=== PATIENT | male | born 1970 | race Caucasian/White ===

== ENCOUNTER 2022-05-18 11:38 | Outpatient (CLI) | payer OTHER, SELFPAY ==
[2022-05-18 17:51] LABS: Chloride* 110 mmol/L (96-114); Potassium* 4.5 mmol/L (3.6-5.1); Sodium* 141 mmol/L (135-149)
[2022-05-18 17:54] LABS: Blood Urea Nitrogen* 19 mg/dL (7-30); Carbon Dioxide* 21 mmol/L (20-32); Cholesterol* 150 mg/dL (90-199); Creatinine* 0.7 mg/dL (0.5-1.5); Estimated Glomerular Filt Rate 112 ml/min; Glucose* 97 mg/dL (60-115); Triglycerides* 132 mg/dL (40-149)
[2022-05-18 17:55] LABS: Calcium* 9.1 mg/dL (8.4-10.6); HDL Cholesterol* 44 mg/dL (>=40); LDL Cholesterol Calculated 80 mg/dL (<100)
== END 2022-05-18 11:39 | disposition home or self-care (01) ==
PROVIDERS: PCP Family Medicine; Visit Provider Family Medicine
DX: E13.9 Other specified diabetes mellitus without complications (principal); E78.5 Hyperlipidemia, unspecified; I10 Essential (primary) hypertension
CPT/HCPCS: 80048; 80061

== ENCOUNTER 2023-08-29 09:30 | Outpatient (CLI) | payer OTHER, SELFPAY | END 2023-08-29 09:31 | disposition home or self-care (01) | LOC: NFLDREF 08-30 07:03 | PROVIDERS: PCP Family Medicine; Referring Provider Family Medicine; Visit Provider Family Medicine | DX: I10 Essential (primary) hypertension (principal); E13.9 Other specified diabetes mellitus without complications; E78.00 Pure hypercholesterolemia, unspecified; Z12.5 Encounter for screening for malignant neoplasm of prostate | CPT/HCPCS: 80048; 80061; G0103 ==

== ENCOUNTER 2023-11-28 11:58 | Emergency (ER) | payer OTHER, SELFPAY ==
[2023-11-28 12:04] VITALS: BP 184/93; PULSE 87; RESP 18; TEMP 35.8; O2SAT 99; BMI 43.8
[2023-11-28] MEDS: LACTATED RINGERS 1000 ML 1,000 ML IV (12:46)
[2023-11-28 12:59] LABS: Basophils Absolute Auto 0.03 K/uL (0.00-0.30); Basophils Percent Auto 0.5 % (0.0-3.0); Eosinophils Absolute Auto 0.08 K/uL (0.00-0.50); Eosinophils Percent Auto 1.5 % (0.0-7.0); Hematocrit 41.5 % (37.0-53.0); Hemoglobin* 13.7 gm/dL (13.5-17.5); Lymphocytes Absolute Auto 2.24 K/uL (0.90-2.90); Mean Corpuscular HGB Conc 33 gm/dL (32-36); Mean Corpuscular Hemoglobin 26 pg (26-34); Mean Corpuscular Volume 77 fL (80-100); Monocytes Percent Auto 7.3 % (0.0-11.0); Neutrophils Absolute Auto 2.72 K/uL (1.7-7.0); Neutrophils Percent Auto 49.7 % (42.0-72.0); Platelet Count* 145 K/uL (140-440); RDW Coefficient of Variation % 13.1 % (11.5-15.5); Red Blood Count 5.38 m/uL (4.30-5.90); White Blood Count* 5.47 K/uL (4.50-11.00)
--- NOTE | 2023-11-28 13:01 | ED_ITS ---
HPI - General Adult General Date Seen: 11/28/23 Chief complaint: Arrhythmia/Palpitations Stated complaint: Shortness of breath, heart beating hard Time Seen by Provider: 11/28/23 12:01 Source: patient Mode of arrival: ambulatory Limitations: no limitations History of Present Illness HPI narrative: Patient is a 53-year-old male history of hypertension, diabetes presenting to emergency department for episodes of shortness of breath and palpitations. He states yesterday he felt some palpitations yesterday but was able to exercise without any further issues. He was asymptomatic during this exercise. Today he had 2 separate episodes where he was walking up the steps at [facility] he developed diaphoresis, palpitations and shortness of breath. After the 2nd episode he came to be evaluated. Denies symptoms like this before. No history of cardiac issues. Denies fevers, chills, headache, vision changes, weakness, numbness. Currently denies chest pain or shortness of breath. States he never had chest pain throughout these episodes. States symptoms improved when he sits or lays down. Related Data Home Medications ?Medication ?Instructions ?Recorded ?Confirmed aspirin 81 mg tablet,delayed 81 mg PO QDAY 05/18/22 02/05/23 release (Adult Aspirin Regimen) clobetasol 0.05 % topical ointment 1 topical BID 05/18/22 02/05/23 multivitamin 1 tab PO QDAY 05/18/22 02/05/23 urea 20 % topical cream 20 applic topical DAILY 05/18/22 02/05/23 Previous Rx's ?Medication ?Instructions ?Recorded celecoxib 200 mg capsule (Celebrex) 200 mg PO QDAY #30 caps 05/18/22 lisinopril 20 mg tablet 20 mg PO DAILY #90 tabs 05/18/22 atorvastatin 20 mg tablet 20 mg PO .Bedtime #90 tabs 02/05/23 glipizide 10 mg tablet, extended 10 mg PO QDAY #90 tabs 02/05/23 release 24 hr metformin 500 mg tablet 1,000 mg (2 x 500 mg) PO BID #360 09/02/23 tabs Allergies Allergy/AdvReac Type Severity Reaction Status Date / Time codeine Allergy Mild Headache Verified 11/28/23 15:22 Review of Systems Status of ROS: Reports: 10 or more systems reviewed and unremarkable except as noted in History and below PFSH PFS Surgical History Status post amputation of finger ?Z89.029 - Acquired absence of unspecified finger(s) (ICD-10) History of left inguinal hernia repair (09/30/09) ?Z98.890 - Other specified postprocedural states (ICD-10) ?Z87.19 - Personal history of other diseases of the digestive system (ICD-10) Family History Other Diabetes Social History What is your current living situation?: declined to answer Problems where you live: declined to answer In the past 12 months, utilities in danger of being shut off: declined to answer In past 12 months, lack of transportation kept you from medical appts, meetings, work, or getting things needed for daily living: declined to answer In the past 12 mos, have been you worried that your food would run out before you had money to buy more?: declined to answer In the past 12 mos, the food you bought just didn't last and you didn't have money to buy more?: declined to answer Smoking Status: Never smoker How often do you have a drink containing alcohol: never AUDIT-C Alcohol total score: 0 Non-prescribed substance use: denies use How often does anyone, including family, friends and others, physically hurt you : never How often does anyone, including family, friends and others, insult or talk down to you: never How often does anyone, including family, friends and others, threaten you with harm: never How often does anyone, including family, friends and others, scream or curse at you: never Exam Narrative: Exam Narrative: Const: Well-nourished, Well-developed, in no distress Eyes: PERRL, no conjunctival injection, and symmetrical lids HENT: Atraumatic external nose and ears. Moist mucous membranes. Neck: Symmetric, trachea midline, No thyromegaly. CVS: RRR, No murmurs or gallops. Peripheral pulses 2+ and equal in all extremities RESP: Unlabored respiratory effort. Clear to auscultation bilaterally. GI: Nontender/Nondistended, No rebound or guarding. MSK:Extremities w/o deformity, Normal Active ROM Skin: Warm, Dry. No rashes or lesions. Neuro: Normal Muscle tone, No focal neurological deficits. Psych: Awake, Alert, & Oriented x3. Appropriate mood and affect. Const: Vital Signs, click to edit/add: Vital Signs - 24 hr 11/28/23 12:04 11/28/23 13:39 Temperature 96.4 F L Pulse Rate [Pulse Oximeter] 87 72 Respiratory Rate 18 18 Blood Pressure [Le ft Upper Arm] 184/93 H 159/90 H Pulse Oximetry 99 97 Oxygen Delivery Me thod Room Air Room Air Course Vital Signs Vital signs: Initial Vital Signs Temperature 96.4 F L 11/28/23 12:04 Temperature Source Temporal Artery Scan 11/28/23 12:04 Pulse Rate 87 11/28/23 12:04 Pulse Rhythm Regular 11/28/23 12:04 Respiratory Rate 18 11/28/23 12:04 Blood Pressure 184/93 H 11/28/23 12:04 Blood Pressure Mean 123 H 11/28/23 12:04 Blood Pressure Position Supine 11/28/23 12:04 Pulse Oximetry 99 11/28/23 12:04 Oxygen Delivery Method Room Air 11/28/23 12:04 Vital Signs Temperature 96.4 F L 11/28/23 12:04 Pulse Rate 87 11/28/23 12:04 Respiratory Rate 18 11/28/23 12:04 Blood Pressure 184/93 H 11/28/23 12:04 Pulse Oximetry 99 11/28/23 12:04 Oxygen Delivery Method Room Air 11/28/23 12:04 Temperature 96.4 F L 11/28/23 12:04 Pulse Rate 72 11/28/23 13:39 Respiratory Rate 18 11/28/23 13:39 Blood Pressure 159/90 H 11/28/23 13:39 Pulse Oximetry 97 11/28/23 13:39 Oxygen Delivery Method Room Air 11/28/23 13:39 Medications Administered Medications: Discontinued Medications Generic Name Dose Route Start Last Admin Trade Name Freq PRN Reason Stop Dose Admin Lactated Ringer's 1,000 mls @ 1,000 mls/hr 11/28/23 12:32 11/28/23 13:30 Lactated Ringers 1000 Ml IV 11/28/23 13:31 Infused .Q1H ONE Infusion Medical Decision Making MDM Narrative Medical decision making narrative: Patient is a 53-year-old male presenting to the emergency department for shortness of breath and palpitations. Currently asymptomatic. He does state he has also been having a cough. Is concerned about pneumonia. No history of blood clots. With the shortness of breath though I will order D-dimer look for signs of a PE. Will also order CBC, CMP, COVID/flu/RSV, EKG, troponin, magnesium. L of fluids was given. He states he feels like he has been well hydrated recently. Cbc, CMP shows no concerning abnormalities. COVID/flu/RSV is negative. Initial troponin within normal limits. EKG shows no concerning findings. D-dimer is elevated 0.66. Will order a CTA for evaluation of PE other cardiothoracic issues. CT results returned showing no concerning abnormalities as reviewed by myself and the radiologist. Patient continues she has stable vital signs. Repeat troponin is ordered and was normal. He is doing well at this time will be discharged. Lab Data Labs: Lab Results 11/28/23 Range/Units 12:45 WBC 5.47 (4.50-11.00) K/uL RBC 5.38 (4.30-5.90) m/uL Hgb 13.7 (13.5-17.5) gm/dL Hct 41.5 (37.0-53.0) % MCV 77 L (80-100) fL MCH 26 (26-34) pg MCHC 33 (32-36) gm/dL RDW Coeff of Kimani 13.1 (11.5-15.5) % Plt Count 145 (140-440) K/uL Neut % (Auto) 49.7 (42.0-72.0) % Lymph % (Auto) 41.0 (20-44) % Burnet % (Auto) 7.3 (0.0-11.0) % Eos % (Auto) 1.5 (0.0-7.0) % Baso % (Auto) 0.5 (0.0-3.0) % Neut # (Auto) 2.72 (1.7-7.0) K/uL Lymph # (Auto) 2.24 (0.90-2.90) K/uL Burnet # (Auto) 0.40 (0.00-0.90) K/UL Eos # (Auto) 0.08 (0.00-0.50) K/uL Baso # (Auto) 0.03 (0.00-0.30) K/uL Abs Immat Gran (auto) 0.00 (0.00-0.30) K/uL Imm/Tot Granulo (auto) 0.0 % D-Dimer Quant (PE/DVT) 0.66 H (0.00-0.50) ug/ml Sodium 139 (135-149) mmol/L Potassium 4.0 (3.6-5.1) mmol/L Chloride 105 (96-114) mmol/L Carbon Dioxide 25 (20-32) mmol/L Anion Gap 9 (7-15) mEq/L BUN 16 (7-30) mg/dL Creatinine 0.8 (0.5-1.5) mg/dL Estimated Creat Clear 111.53 Estimated GFR 106 ml/min Glucose 139 H (60-115) mg/dL Calcium 9.3 (8.4-10.6) mg/dL Magnesium 1.7 (1.5-2.6) mg/dL Total Bilirubin 0.7 (0.1-1.5) mg/dL AST 34 (12-35) U/L ALT 50 (4-50) U/L Alkaline Phosphatase 79 (40-150) U/L Total Protein 7.4 (6.0-8.3) g/dL Albumin 4.4 (3.3-5.0) g/dL SARS-CoV-2 (PCR) Negative SARS-CoV-2 (Negative) Influenza Type A (PCR) Negative PCR FLU A (Negative) Influenza Type B (PCR) Negative PCR FLU B (Negative) RSV (PCR) Negative PCR RSV (Negative) POC Troponin I 0.00 L (0.01-0.04) ng/ml Imaging Data CTA chest: Radiologist's impression: No CT evidence of an acute process involving the thorax; specifically, no appreciable pulmonary embolism. Please note that all CT scans at this facility use dose modulation, iterative reconstruction, and/or weight-based dosing when appropriate to reduce radiation dose to as low as reasonably achievable. Dictated by Phuc Briones MD @ 11/28/2023 2:39:46 PM ECG Data Attestation: I personally reviewed and interpreted this ECG as follows: Prior ECG tracings: not available for review Interpretation: Normal sinus rhythm with a rate of 80 beats per minute, normal intervals, normal axis, no ST or T-wave abnormalities Discharge Plan Discharge Clinical Impression: Palpitations Patient Disposition: Home, Self-Care Condition: Stable Instructions: Heart Palpitations (DC) Additional Instructions: If symptoms persist I recommend following up with your primary care provider for a heart monitor. Return to emergency department for any new or worsening symptoms. Prescriptions: No Action aspirin [Adult Aspirin Regimen] 81 mg tablet,delayed release (DR/EC) 81 mg PO QDAY multivitamin Tablet 1 tab PO QDAY clobetasol 0.05 % ointment 1 topical BID Rx Instructions: APPLY SPARINGLY TO AFFECTED AREA urea 20 % cream 20 applic topical DAILY celecoxib [Celebrex] 200 mg capsule 200 mg PO QDAY Qty: 30 2RF lisinopril 20 mg tablet 20 mg PO DAILY Qty: 90 3RF metformin 500 mg tablet 1,000 mg PO BID Qty: 360 3RF glipizide 10 mg tablet extended release 24hr 10 mg PO QDAY Qty: 90 3RF atorvastatin 20 mg tablet 20 mg PO .Bedtime Qty: 90 3RF Follow Up/Referrals: Omar Stewart MD [Primary Care Provider] - Stand Alone Forms: [facility] Info Instructions
[2023-11-28 13:26] LABS: Albumin* 4.4 g/dL (3.3-5.0); Chloride* 105 mmol/L (96-114)
[2023-11-28 13:27] LABS: Sodium* 139 mmol/L (135-149)
[2023-11-28 13:29] LABS: Alanine Aminotransferase* 50 U/L (4-50); Alkaline Phosphatase* 79 U/L (40-150); Anion Gap 9 mEq/L (7-15); Aspartate Amino Transferase* 34 U/L (12-35); Bilirubin Total* 0.7 mg/dL (0.1-1.5); Blood Urea Nitrogen* 16 mg/dL (7-30); Calcium* 9.3 mg/dL (8.4-10.6); Carbon Dioxide* 25 mmol/L (20-32); Creatinine* 0.8 mg/dL (0.5-1.5); Est. Creatinine Clearance* 111.53; Estimated Glomerular Filt Rate 106 ml/min; Glucose* 139 mg/dL (60-115); Total Protein* 7.4 g/dL (6.0-8.3)
[2023-11-28 13:30] LABS: Magnesium* 1.7 mg/dL (1.5-2.6)
[2023-11-28 13:36] LABS: D Dimer Quantitative* 0.66 ug/ml (0.00-0.50); PCR FLU A Negative PCR FLU A (Negative); PCR FLU B Negative PCR FLU B (Negative); PCR RSV Negative PCR RSV (Negative); SARS PCR* Negative SARS-CoV-2 (Negative); Slide Review Reflex No
[2023-11-28 13:39] VITALS: BP 159/90; PULSE 72; RESP 18; O2SAT 97
--- NOTE | 2023-11-28 13:47 | CRLHL7_ITS ---
For Patients: As a result of the Century Cures Act, medical imaging exams and procedure reports are released immediately into your electronic medical record. You may view this report before your referring provider. If you have questions, please contact your health care provider. Indication: SOB. CHEST PALPATATIONS Technique: CTA chest, pulmonary embolism protocol, utilizing 95 mL Isovue 370 Comparison: None Findings: No thyroid nodules. No thoracic lymphadenopathy. The heart is at the upper limits of normal in size. No pericardial effusion. The thoracic aorta and pulmonary artery are normal in caliber. Examination of the pulmonary arteries is somewhat limited secondary to contrast bolus timing. There is no appreciable pulmonary embolism. Regions of slightly decreased attenuation in the distal segmental and subsegmental pulmonary arteries are favored to represent contrast mixing artifact. No focal airspace consolidation, pleural effusion, or pneumothorax. No suspicious pulmonary nodules or masses. The airways are clear. The visualized upper abdomen is unremarkable. No acute fracture or malalignment. Thoracic spine ankylosing spondylitis. No suspicious osseous lesions. Impression: No CT evidence of an acute process involving the thorax; specifically, no appreciable pulmonary embolism. Please note that all CT scans at this facility use dose modulation, iterative reconstruction, and/or weight-based dosing when appropriate to reduce radiation dose to as low as reasonably achievable. Dictated by Phuc Briones MD @ 11/28/2023 2:39:46 PM (Electronically Signed)
== END 2023-11-28 15:26 | disposition home or self-care (01) ==
PROVIDERS: Emergency Provider Student in an Organized Health Care Education/Training Program; PCP Family Medicine
DX: R00.0 Tachycardia, unspecified (principal)
CPT/HCPCS: 36415; 71275; 80053; 83735; 84484; 85025; 85379; 87631; 93005; 99283; 99284; 99285; J7120; Q9967

== ENCOUNTER 2023-11-29 01:29 | Emergency (ER) | payer OTHER, SELFPAY ==
[2023-11-29 01:40] VITALS: BP 168/102; PULSE 79; RESP 18; TEMP 36.6; O2SAT 98; BMI 44.0
--- NOTE | 2023-11-29 02:37 | ED_ITS ---
HPI - Arrhythmia/Palpitations General Date Seen: 11/29/23 Chief Complaint: Arrhythmia/Palpitations Stated Complaint: Elevated heartrate Time Seen by Provider: 11/29/23 01:39 Source: patient Mode of arrival: ambulatory Limitations: no limitations History of Present Illness HPI narrative: Patient is a 53-year-old male who was seen earlier today with episodes of tachycardia and diaphoresis while going up the stairs here at the hospital. He has not had this problem previously. His evaluation was unremarkable including EKG, serial troponins, CTA of the lungs due to a mildly positive D-dimer. He went home and went to bed this evening using his CPAP machine as always. He woke during the night he believes because of tachycardia. He checked his heart rate was over 120. His oxygen level was normal. He has not had any chest pain. But is very concerned because this tachycardia is not normal for him. He was able to go to the gym a couple of days ago and exercise to the point of raising his heart rate up to 180. He had no chest pain with this. He has had no sensation that his heart is beating irregularly but it does feel like it is beating very hard. His blood pressure is poorly controlled. He has never had a stress test. He has not had any exertional chest pain. He has a five of the major six risk factors for coronary artery disease including male gender, family history, hypertension, hyperlipidemia, type 2 diabetes. He is not a smoker. PCP is Dr. Stewart. His last A1c was 7.3% corresponding to an average blood sugar of 160. Related Data Home Medications ?Medication ?Instructions ?Recorded ?Confirmed aspirin 81 mg tablet,delayed 81 mg PO QDAY 05/18/22 02/05/23 release (Adult Aspirin Regimen) clobetasol 0.05 % topical ointment 1 topical BID 05/18/22 02/05/23 multivitamin 1 tab PO QDAY 05/18/22 02/05/23 urea 20 % topical cream 20 applic topical DAILY 05/18/22 02/05/23 Previous Rx's ?Medication ?Instructions ?Recorded celecoxib 200 mg capsule (Celebrex) 200 mg PO QDAY #30 caps 05/18/22 lisinopril 20 mg tablet 20 mg PO DAILY #90 tabs 05/18/22 atorvastatin 20 mg tablet 20 mg PO .Bedtime #90 tabs 02/05/23 glipizide 10 mg tablet, extended 10 mg PO QDAY #90 tabs 02/05/23 release 24 hr metformin 500 mg tablet 1,000 mg (2 x 500 mg) PO BID #360 09/02/23 tabs Allergies Allergy/AdvReac Type Severity Reaction Status Date / Time codeine Allergy Mild Headache Verified 11/28/23 15:22 Review of Systems Narrative: Review of systems is outlined above otherwise noted to be negative. His blood sugars have been adequate. He wears his CPAP faithfully every night. His blood pressure is poorly controlled and generally will runs above 140 over 90. He was able exercise a few days ago without any significant anginal symptoms. He denies any major issues with stress or anxiety. [facility] Medical History (Updated 11/29/23 @ 02:39 by Kavin Dupree MD) Diabetes 1.5, managed as type 2 ?E13.9 - Other specified diabetes mellitus without complications (ICD-10) Hyperlipidemia ?E78.5 - Hyperlipidemia, unspecified (ICD-10) Hypertension ?I10 - Essential (primary) hypertension (ICD-10) ALBERTO on CPAP ?G47.33 - Obstructive sleep apnea (adult) (pediatric) (ICD-10) Surgical History Status post amputation of finger ?Z89.029 - Acquired absence of unspecified finger(s) (ICD-10) History of left inguinal hernia repair (09/30/09) ?Z98.890 - Other specified postprocedural states (ICD-10) ?Z87.19 - Personal history of other diseases of the digestive system (ICD-10) Family History Other Diabetes Social History What is your current living situation?: declined to answer Problems where you live: declined to answer In the past 12 months, utilities in danger of being shut off: declined to answer In past 12 months, lack of transportation kept you from medical appts, meetings, work, or getting things needed for daily living: declined to answer In the past 12 mos, have been you worried that your food would run out before you had money to buy more?: declined to answer In the past 12 mos, the food you bought just didn't last and you didn't have money to buy more?: declined to answer Smoking Status: Never smoker Second hand tobacco smoke exposure: No How often do you have a drink containing alcohol: never How often do you have six or more drinks on one occasion: Never AUDIT-C Alcohol total score: 0 Non-prescribed substance use: denies use How often does anyone, including family, friends and others, physically hurt you : never How often does anyone, including family, friends and others, insult or talk down to you: never How often does anyone, including family, friends and others, threaten you with harm: never How often does anyone, including family, friends and others, scream or curse at you: never service: No Exam Narrative: Exam Narrative: Vitals noted. He is understandably anxious. HEENT: Conjunctiva clear. Neck is supple without adenopathy, thyromegaly. Lungs: Clear to auscultation in all kay. No wheezes, rales, rhonchi. Heart: Regular rate and rhythm without murmur. Abdomen: Obese, Soft and nontender. No guarding, rigidity, rebound. Bowel sounds are normal. No palpable masses. Extremities: No cyanosis or edema. Good distal pulses. Skin: No abnormalities noted of the exposed skin. Neurologic: Awake, alert, fully oriented. Neurologic exam is nonfocal. Const: Vital Signs, click to edit/add: Vital Signs - 24 hr 11/29/23 01:40 Temperature 97.8 F Pulse Rate [Pulse Oximeter] 79 Respiratory Rate 18 Blood Pressure [Ri ght Upper Arm] 168/102 H Pulse Oximetry 98 Oxygen Delivery Me thod Room Air Course Course ED Course: The patient seen and examined. I reviewed his records from earlier today. Point of care troponin is 0. EKG shows normal sinus rhythm with a rate of 80. No acute ST or T-wave changes noted. He was monitored on telemetry and had no evidence of sinus tachycardia. On his own he chose to walk up and down the stairway here twice and states that his heart rate got up over 150 while he did that. No chest pain or diaphoresis. No significant shortness of breath. We had a good discussion regarding our follow-up plan. I think he needs a stress test in a stress echo would be the best option. He needs to have his CPAP do wnloaded to make sure this pressure setting is correct and that hypoxia during the night is not what led to his tachycardia. I think he would benefit from a Zio patch to make sure that these are episodes of sinus tachycardia and not SVT or atrial fibrillation. That can be set up through the clinic. Vital Signs Vital signs: Initial Vital Signs Temperature 97.8 F 11/29/23 01:40 Temperature Source Temporal Artery Scan 11/29/23 01:40 Pulse Rate 79 11/29/23 01:40 Pulse Rhythm Regular 11/29/23 01:40 Respiratory Rate 18 11/29/23 01:40 Blood Pressure 168/102 H 11/29/23 01:40 Blood Pressure Mean 124 H 11/29/23 01:40 Blood Pressure Position Sitting 11/29/23 01:40 Pulse Oximetry 98 11/29/23 01:40 Oxygen Delivery Method Room Air 11/29/23 01:40 Vital Signs Temperature 97.8 F 11/29/23 01:40 Pulse Rate 79 11/29/23 01:40 Respiratory Rate 18 11/29/23 01:40 Blood Pressure 168/102 H 11/29/23 01:40 Pulse Oximetry 98 11/29/23 01:40 Oxygen Delivery Method Room Air 11/29/23 01:40 Temperature 97.8 F 11/29/23 01:40 Pulse Rate 79 11/29/23 01:40 Respiratory Rate 18 11/29/23 01:40 Blood Pressure 168/102 H 11/29/23 01:40 Pulse Oximetry 98 11/29/23 01:40 Oxygen Delivery Method Room Air 11/29/23 01:40 MDM - Arrhythmia/Palpitations Lab Data Labs: Lab Results 11/29/23 Range/Units 02:11 POC Troponin I 0.00 L (0.01-0.04) ng/ml Discharge Plan Discharge Clinical Impression: Sinus tachycardia Patient Disposition: Home, Self-Care Condition: Stable Additional Instructions: Increase Lisinopril to 20 mg daily. Start ASA 81 mg daily. Schedule stress echo for next week. Follow up with Dr Stewart to have a Zio patch placed. Consider having your CPAP downloaded to assure the pressure setting is effective. Prescriptions: No Action aspirin [Adult Aspirin Regimen] 81 mg tablet,delayed release (DR/EC) 81 mg PO QDAY multivitamin Tablet 1 tab PO QDAY clobetasol 0.05 % ointment 1 topical BID Rx Instructions: APPLY SPARINGLY TO AFFECTED AREA urea 20 % cream 20 applic topical DAILY celecoxib [Celebrex] 200 mg capsule 200 mg PO QDAY Qty: 30 2RF lisinopril 20 mg tablet 20 mg PO DAILY Qty: 90 3RF metformin 500 mg tablet 1,000 mg PO BID Qty: 360 3RF glipizide 10 mg tablet extended release 24hr 10 mg PO QDAY Qty: 90 3RF atorvastatin 20 mg tablet 20 mg PO .Bedtime Qty: 90 3RF Follow Up/Referrals: Omar Stewart MD [Primary Care Provider] - Stand Alone Forms: [facility] Info Instructions
[2023-11-29 03:30] VITALS: BP 154/101; PULSE 80; RESP 16; TEMP 36.7
--- NOTE | 2023-11-29 03:31 | PC.NURSE ---
Pt states he walked up two flights of stairs while in ED with information technology intern standing by. States per pulse ox his heart rate went up to 150s and he felt short of breath, feeling the palpitations again, Denies discomfort.
== END 2023-11-29 03:05 | disposition home or self-care (01) ==
LOC: ED 02:16
PROVIDERS: Emergency Provider Family Medicine; PCP Family Medicine
DX: R00.0 Tachycardia, unspecified (principal)
CPT/HCPCS: 84484; 99282; 99283

== ENCOUNTER 2023-12-12 14:44 | Outpatient (CLI) | payer OTHER, SELFPAY ==
[2023-12-12] MEDS: PERFLUTREN LIPID MICROSPHERES 2 ML VIAL IV (15:36)
[2023-12-12 15:41] VITALS: BP 180/100; PULSE 116; RESP 18
--- NOTE | 2023-12-12 15:43 | W.PM.STED ---
Stress Test Note Date Date Seen: 12/12/23 Date of test: 12/12/23 Providers Referring provider: Kavin Dupree Primary care provider: Omar Stewart Stress test physician: Miladys Kirkland Stress Test Note Stress test ordered: Stress Echo Indication for test: Dyspnea on exertion Stress test medicine: Definity Results discussion: Resting EKG: Sinus rhythm, 69 beats per minute. Isolated flipped T-wave in lead V1 without any ST segment change. Resting blood pressure: 160/102, confirmed patient has taken his lisinopril today. Stress test: Patient was consented in exercised following standard treadmill Guillermo protocol stress echo. Patient was exercised to 6 minutes 22 seconds, terminating after a systolic blood pressure of 264/90 at the end of the 2nd phase was obtained. He did have to have definity, as soon as this elevated blood pressure was noted, definity was given an stress test was terminated as quickly as it could be. Patient felt symptomatic with shortness of breath but no chest pain or discomfort. He had a rate pressure product at 5 minutes 11 seconds of 42,504. He achieved 7.7 Mets with this level of activity. He did have a maximum heart rate of 172 beats per minute which was 120% of a calculated target heart rate of 143. There was no diagnostic evidence of ischemia on the EKG. He had about 3 isolated PVCs early in exercise but otherwise no arrhythmia. Blood pressure was coming down after exercise. Will await echo images to couple this for a full formal diagnostic. Impression: Subjectively negative, objectively negative EKG for ischemia but significant hypertensive response. Follow up suggested: Patient's blood pressure improved after exercise, outside of having shortness of breath, he was not symptomatic from the elevated blood pressure. He will await the echo images to couple this for a full formal diagnostic. 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 Did write him a prescription for metoprolol XL 50 mg daily to initiate for improved control of his hypertension. He will stand his lisinopril 20 mg daily that had recently been increased. He will watch his blood pressures. We did discuss consideration echo to fully look at the heart structures and function. If the group social worker sees no concerning changes on the echo for ischemia, may consider looking at ruling out secondary causes of hypertension with his sudden change in status. Will defer to his primary provider who certainly can proceed with further workup and evaluation.
== END 2023-12-12 15:49 | disposition home or self-care (01) ==
LOC: STRESS 14:44
PROVIDERS: PCP Family Medicine; Visit Provider Family Medicine
DX: R06.09 Other forms of dyspnea (principal)
CPT/HCPCS: 93016; 93325; 93351; Q9957

== ENCOUNTER 2023-12-18 12:05 | Outpatient (CLI) | payer OTHER, SELFPAY | END 2023-12-18 12:06 | disposition home or self-care (01) | PROVIDERS: PCP Family Medicine; Visit Provider Family Medicine | DX: R00.0 Tachycardia, unspecified (principal); E13.9 Other specified diabetes mellitus without complications; Z13.29 Encounter for screening for other suspected endocrine disorder | CPT/HCPCS: 84439; 84443 ==

== ENCOUNTER 2024-07-27 09:20 | Outpatient (CLI) | payer OTHER, SELFPAY | END 2024-07-27 09:21 | disposition home or self-care (01) | PROVIDERS: PCP Family Medicine; Visit Provider Family Medicine | DX: E11.9 Type 2 diabetes mellitus without complications (principal); I10 Essential (primary) hypertension; E78.5 Hyperlipidemia, unspecified | CPT/HCPCS: 80048; 80061 ==

== ENCOUNTER 2024-12-30 11:09 | Outpatient (CLI) | payer OTHER, SELFPAY | END 2024-12-30 11:10 | disposition home or self-care (01) | LOC: NFLDREF 01-04 18:40 | PROVIDERS: PCP Family Medicine; Referring Provider Family Medicine; Visit Provider Family Medicine | DX: E11.9 Type 2 diabetes mellitus without complications (principal); I10 Essential (primary) hypertension; E78.00 Pure hypercholesterolemia, unspecified; R00.0 Tachycardia, unspecified | CPT/HCPCS: 36415; 83036 ==